=== PATIENT | female | born 1990 | race Caucasian/White ===

== ENCOUNTER 2016-05-22 21:32 | Emergency (ER) | payer OTHER ==
[2016-05-22 21:36] VITALS: BP 131/91; PULSE 91; BMI 39.9
[2016-05-23] MEDS ORDERED: KETOROLAC TROMETHAMINE 30 MG/1 ML VIAL IM ONE (00:07)
--- NOTE | 2016-05-23 00:08 | PDOC ---
History of Present Illness - General Chief Complaint: Injury Stated Complaint: INJURY Time Seen by Provider: 05/22/16 23:16 - History of Present Illness Initial Comments: 05/23/16 00:08 CHIEF COMPLAINT: left ankle pain s/p fall HISTORY OF PRESENT ILLNESS: 25 yo F with no PMH presents to ED with left ankle pain s/p fall. Patient states she slipped on the ice and twisted her ankle. No recent travel or sick contacts. PAST MEDICAL HISTORY: Denies past medical history FAMILY HISTORY: Denies SOCIAL HISTORY:Denies tobacco, alcohol, illicit drug use. SURGICAL HISTORY: Denies ALLERGIES: No known drug allergies REVIEW OF SYSTEMS General/Constitutional: Denies fever or chills. HEENT: Denies change in vision. Denies ear pain or discharge. Denies sore throat. Cardiovascular: Denies chest pain or shortness of breath. Respiratory: Denies cough, wheezing, or hemoptysis. Musculoskeletal: Pain to left ankle. Skin and breasts: Denies rash or easy bruising. Neurologic: Denies headache, vertigo, loss of consciousness, or loss of sensation. PHYSICAL EXAM General Appearance: Well-appearing, appropriately dressed. No apparent distress. HEENT: EOMI, PERRLA, normal voice. No conjunctival pallor. No photophobia, scleral icterus. Respiratory/Chest: Lungs CTAB. Cardiovascular: RRR. S1, S2. Lymphatic: No adenopathy, tenderness. Musculoskeletal/Extremities: Minimal swelling and TTP to left medial and lateral malleoli. Neurovascularly intact, normal cap refill. Full ROM to all extermities. No tenderness to base of 5th metarsal. Integumentary: Appropriate color, dry, warm. 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 Fully oriented, alert. Appropriate mood/affect. Motor strength 5/5. No appreciable EOM palsy, facial droop or sensory deficit. 05/23/16 00:49 Past History - Past Medical History Allergies/Adverse Reactions: Allergies Allergy/AdvReac Type Severity Reaction Status Date / Time No Known Drug Allergies Allergy Verified 05/22/16 21:34 Home Medications: Ambulatory Orders Ibuprofen 600 mg PO TID #21 tablet 05/23/16 Anemia: No Asthma: No Cancer: No Cardiac Disorders: No CVA: No COPD: No CHF: No Dementia: No Diabetes: No GI Disorders: No Disorders: No HTN: No Hypercholesterolemia: No Liver Disease: No Seizures: No Thyroid Disease: No Other medical history: denies - Immunization History Immunization Up to Date: Yes - Psycho/Social/Smoking Cessation Hx Anxiety: No Suicidal Ideation: No Smoking Status: No Smoking History: Never smoked Number of Cigarettes Smoked Daily: 0 Hx Alcohol Use: No Drug/Substance Use Hx: No Substance Use Type: None Hx Substance Use Treatment: No *Physical Exam - Vital Signs Last Vital Signs Temp Pulse Resp BP Pulse Ox 91 H 18 131/91 99 05/22/16 21:34 05/22/16 21:34 05/22/16 21:34 05/22/16 21:34 ED Treatment Course - ADDITIONAL ORDERS Additional order review: Laboratory Results 05/22/16 22:30 Urine HCG, Qual Negative - RADIOLOGY Radiology Studies Ordered: Category Date Time Status ANKLE-LEFT [RAD] Stat Radiology 05/22/16 23:34 Taken Medical Decision Making - Medical Decision Making 05/23/16 00:23 25 yo F with no PMH presents to ED with left ankle pain s/p fall. -Left ankle x-ray -30 mg Toradol IM X-ray negative for fracture. Cristo bandage, RICE therapy. -600 mg ibuprofen TID PRN pain Advised patient to f/u with ortho for possible PT. Advised patient of signs and symptoms for return to ER; patient verbalized understanding and agrees to plan. *DC/Admit/Observation/Transfer Diagnosis at time of Disposition: Ankle sprain Qualifiers: Encounter type: initial encounter Involved ligament of ankle: unspecified ligament Laterality: left Qualified Code(s): S93.402A - Sprain of unspecified ligament of left ankle, initial encounter - Discharge Dispostion Admit: No - Prescriptions Prescriptions: Ibuprofen 600 mg PO TID #21 tablet - Referrals Referrals: Cuauhtemoc Mckeon MD [Primary Care Provider] - Noé De Souza MD [Staff Physician] - - Patient Instructions Printed Discharge Instructions: DI for Ankle Sprain, How To Perform RICE (Rest , Ice, Compress, Elevate) Additional Instructions: Please take medication as prescribed and follow up with orthopedics within the next 3-4 days for possible physical therapy. If you experience any loss of senstion, tingling, or numbness to your feet or toes, or have any new or worsening symptoms, please return to the ER.
[2016-05-23] MEDS ORDERED: KETOROLAC TROMETHAMINE 30 MG/1 ML VIAL ONE (00:21)
== END 2016-05-23 00:47 | disposition home or self-care (01) ==
LOC: JERFT 21:32 → JER 21:32
PROC: 3E0233Z Introduction of Anti-inflammatory into Muscle, Percutaneous Approach (ICD-10-PCS; principal; 2016-05-22)
DX: S93.492A Sprain of other ligament of left ankle, initial encounter (principal); W00.0XXA Fall on same level due to ice and snow, initial encounter; Y93.89 Activity, other specified; Y92.480 Sidewalk as the place of occurrence of the external cause
CPT/HCPCS: 73610-TC-LT; 84703; 99283-25

== ENCOUNTER 2023-01-02 16:40 | Emergency (ER) | payer OTHER ==
[2023-01-02 16:49] VITALS: BP 96/56; PULSE 72; RESP 18; TEMP 98; BMI 33.3
[2023-01-02] MEDS ORDERED: IBUPROFEN 400 MG TABLET (FP) PO ONE ×2 (18:03→18:12)
[2023-01-02] MEDS ORDERED: ACETAMINOPHEN 500 MG TABLET (FP) PO ONE (18:03)
[2023-01-02] MEDS ORDERED: ACETAMINOPHEN 500 MG TABLET (FP) ONE (18:13)
== END 2023-01-02 20:28 | disposition home or self-care (01) ==
LOC: JER 16:40 → JERFT 16:40
DX: M54.50 Low back pain, unspecified (principal); M54.6 Pain in thoracic spine; V49.40XA Driver injured in collision with unspecified motor vehicles in traffic accident, initial encounter; Y93.I9 Activity, other involving external motion
CPT/HCPCS: 72100-TC-FY; 99283-25